=== PATIENT | male | born 1965 | race Caucasian/White ===

== ENCOUNTER 2017-06-28 00:29 | Emergency (ER) | payer BC | END 2017-06-28 01:25 | disposition left against medical advice (07) | LOC: ER 00:29 | DX: Z53.9 Procedure and treatment not carried out, unspecified reason (principal); R10.9 Unspecified abdominal pain ==

== ENCOUNTER 2019-07-26 03:45 | Emergency (ER) | payer BC, OTHER ==
[2019-07-26] MEDS ORDERED: DIAZEPAM 5 MG TABLET PO ONE (04:31)
[2019-07-26] MEDS ORDERED: HYDROCODONE/ACETAMINOPHEN 10-325 MG TABLET PO ONE (04:31)
[2019-07-26] MEDS ORDERED: LIDOCAINE 2% VISCOUS SOLN 20 ML UDCUP PO ONE (04:39)
--- NOTE | 2019-07-26 05:45 | RADIOLOGY REPORT (SQ) ---
EXAM DESCRIPTION: XR THORACIC SPINE 2 VIEWS COMPLETED DATE/TME: 07/26/2019 04:31 CLINICAL HISTORY: 54 years, Male, Mid back pain COMPARISON: None. NUMBER OF VIEWS: Two TECHNIQUE: Two views of the thoracic spine LIMITATIONS: None. FINDINGS: Alignment of the thoracic spine is satisfactory. There is no acute fracture or subluxation. There is mild multilevel spondylosis with mild disc space narrowing with endplate sclerosis and small anterior osteophytes. IMPRESSION: No acute fracture or subluxation. copyright 2010 [employer]- All Rights Reserved
--- NOTE | 2019-07-26 06:04 | ER Document Report ---
ED General - General Chief Complaint: Upper Abdominal Pain Stated Complaint: UPPER ABDOMINAL PAIN Time Seen by Provider: 07/26/19 04:06 Mode of Arrival: Ambulatory Information source: Patient Notes: Chief complaint: Mid back pain History of complain:( obtained from----patient) 44 years old male with a hold of yesterday was working hard, around 1:00 woke up with sharp pain over the middle of the back radiating bilaterally to the front. Each time he moved the pain is increase in intensity. Therefore present to the ED. No fever chills cough or other constitutional symptoms Onset: Sudden Duration: Since this morning Severity: Moderate to severe Quality: Sharp Context: Has a bowel Exacerbating factor and relieving factors: As above REVIEW OF SYSTEMS: CONSTITUTIONAL : Denies fever, chills, or sweats. Denies recent illness. EENT: Denies eye, ear, throat, or mouth pain or symptoms. Denies nasal or sinus congestion or discharge. Denies throat, tongue, or mouth swelling or difficulty swallowing. CARDIOVASCULAR: Denies chest pain. Denies palpitations or racing or irregular heart beat. Denies ankle edema. RESPIRATORY: Denies cough, cold, or chest congestion. Denies shortness of breath, difficulty breathing, or wheezing. GASTROINTESTINAL: Denies distention. Denies nausea, vomiting, or diarrhea. Denies blood in vomitus, stools, or per rectum. Denies black, tarry stools. Denies constipation. GENITOURINARY: Denies difficulty urinating, painful urination, burning, frequency, blood in urine, or discharge. FEMALE GENITOURINARY: Denies vaginal bleeding, heavy or abnormal periods, irregular periods. Denies vaginal discharge or odor. MUSCULOSKELETAL: Denies back or neck pain or stiffness. Denies joint pain or swelling. SKIN: Denies rash, lesions or sores. HEMATOLOGIC : Denies easy bruising or bleeding. LYMPHATIC: Denies swollen, enlarged glands. NEUROLOGICAL: Denies confusion or altered mental status. Denies passing out or loss of consciousness. Denies dizziness or lightheadedness. Denies headache. Denies weakness or paralysis or loss of use of either side. Denies problems with gait or speech. Denies sensory loss, numbness, or tingling. Denies seizures. PSYCHIATRIC: Denies anxiety or stress. Denies depression, suicidal ideation, or homicidal ideation. ALL OTHER SYSTEMS REVIEWED AND NEGATIVE. PHYSICAL EXAMINATION: GENERAL: Well-appearing, well-nourished and in moderate acute distress. HEAD: Atraumatic, normocephalic. EYES: Pupils equal round and reactive to light, extraocular movements intact, conjunctiva are normal. ENT: Nares patent, oropharynx clear without exudates. Moist mucous membranes. NECK: Normal range of motion, supple without lymphadenopathy LUNGS: Breath sounds clear to auscultation bilaterally and equal. No wheezes rales or rhonchi. HEART: Regular rate and rhythm without murmurs Sharp chest wall tenderness over the bilateral lower ribs as well as mid back noted. Along the T11 T10 region. ABDOMEN: Soft, nontender, nondistended abdomen. No guarding, no rebound. No masses appreciated. Examination of genitals-deferred Musculoskeletal: Normal range of motion, no pitting or edema. No cyanosis. Dictation was performed using [employer] voice recognition software TRAVEL OUTSIDE OF THE [place] IN LAST 30 DAYS: No - HPI Notes: Dictated - Related Data Allergies/Adverse Reactions: No Known Allergies Allergy (Verified 07/26/19 05:32) Past Medical History - Social History Smoking Status: Former Smoker Frequency of alcohol use: None Drug Abuse: None Family History: CAD, Other - Brother PA in 40s. Grandma PA in 60s. Great Uncle PA in 40s. Patient has suicidal ideation: No Patient has homicidal ideation: No - Past Medical History Cardiac Medical History: Reports: Hx Hypercholesterolemia, Hx Hypertension Denies: Hx Coronary Artery Disease, Hx Heart Attack Pulmonary Medical History: Denies: Hx Asthma, Hx Bronchitis, Hx COPD, Hx Pneumonia Neurological Medical History: Denies: Hx Cerebrovascular Accident, Hx Seizures Endocrine Medical History: Reports: Hx Diabetes Mellitus Type 2 GI Medical History: Reports: Hx Gastroesophageal Reflux Disease Musculoskeletal Medical History: Reports Hx Arthritis, Reports Hx Gout Past Surgical History: Reports: Hx Orthopedic Surgery - elbow /knee. Denies: Hx Pacemaker - Immunizations Hx Diphtheria, Pertussis, Tetanus Vaccination: Yes Review of Systems - Review of Systems Notes: Dictated Physical Exam - Vital signs Vitals: Temp Pulse Resp BP Pulse Ox 97.5 F 70 16 152/87 H 97 07/26/19 03:53 07/26/19 03:53 07/26/19 03:53 07/26/19 03:53 07/26/19 03:53 - Notes Notes: Dictated Course - Vital Signs Vital signs: Temp Pulse Resp BP Pulse Ox 97.5 F 70 16 152/87 H 97 07/26/19 03:53 07/26/19 03:53 07/26/19 03:53 07/26/19 03:53 07/26/19 03:53 - Diagnostic Test Radiology reviewed: Reports reviewed Radiology results interpreted by me: 07/26/19 06:01 Mid back x-ray negative for any injuries according to the radiologist Discharge - Discharge Clinical Impression: Mid back pain Strain of mid-back Qualifiers: Encounter type: initial encounter Qualified Code(s): S29.012A - Strain of muscle and tendon of back wall of thorax, initial encounter Condition: Fair Disposition: HOME, SELF-CARE Instructions: Low Back Pain ([facility]) Prescriptions: Diazepam [Valium 2 mg Tablet] 2 mg PO Q6HP PRN #15 tablet PRN Reason: Diclofenac Sodium [Diclofenac Sodium ER] 100 mg PO DAILY #30 tab.er.24h Hydrocodone/Acetaminophen [[place] 5-325 mg Tablet] 1 tab PO TID #14 tablet
[2019-07-26 06:13] VITALS: BP 138/81
== END 2019-07-26 06:11 | disposition home or self-care (01) ==
LOC: ER 03:45
DX: S29.012A Strain of muscle and tendon of back wall of thorax, initial encounter (principal); M54.9 Dorsalgia, unspecified; R10.10 Upper abdominal pain, unspecified; X58.XXXA Exposure to other specified factors, initial encounter; Z87.891 Personal history of nicotine dependence; I10 Essential (primary) hypertension; E11.9 Type 2 diabetes mellitus without complications
CPT/HCPCS: 72070; 99283